=== PATIENT | female | born 1980 | race Caucasian/White ===

== ENCOUNTER 2021-02-21 16:30 | Emergency (ER) | payer SELFPAY ==
[~2021-02-21] VITALS: Ht 170.2 cm; Wt 66.7 kg
--- NOTE | 2021-02-21 17:00 | NUR ---
PT AMBULATED STEADILY TO ROOM FROM [facility]
--- NOTE | 2021-02-21 17:28 | NUR ---
FIRST CONTACT WITH PT. PT SITTING UP IN HAIDER BAZZI. PT REPORTS THAT SHE HAS RECENTLY MOVED TO [place] FROM [place] AND DOES NOT HAVE A PCP OR [place] MEDICAID YET TO FILL HER RX. [place] BASED PCP CALLED IN ANXIETY MEDICATION TO PT'S PHARMACY BUT PT STATES "IT IS TOO EXPENSIVE TO GET". PT W MULTIPLE CO TODAY INCLUDING NEEDING ANXIETY RX AND PELVIC PAIN FOR NON-SPECIFIC TIME FRAME. BP/SPO2 MONITORING IN PLACE. UA COLLECTED AND SENT TO LAB
[2021-02-21 17:29] LABS: MICROSCOPIC NOT IND
[2021-02-21] MEDS ORDERED: LORazepam 2 MG/ML, 1ML ONE (18:22)
[2021-02-21] MEDS ORDERED: ONDANSETRON 2MG/ML, 2ML ONE (18:22)
[2021-02-21] MEDS ORDERED: MORPHINE SULFATE 4 MG/ML, 1ML ONE (18:22)
[2021-02-21] MEDS ORDERED: KETOROLAC 30 MG/1 ML ONE (18:25)
[2021-02-21] MEDS ORDERED: OXYcodone/APAP 10/325MG TABLET ONE (18:29)
[2021-02-21] MEDS ORDERED: LORazepam 1MG TABLET ONE (18:29)
[2021-02-21] MEDS ORDERED: LORazepam 1MG TABLET PO ONE (18:30)
[2021-02-21] MEDS ORDERED: KETOROLAC 30 MG/1 ML IVPush ONE (18:30)
[2021-02-21] MEDS ORDERED: ONDANSETRON 2MG/ML, 2ML IVPush ONE (18:30)
[2021-02-21] MEDS ORDERED: MORPHINE SULFATE 4 MG/ML, 1ML IVPush PRN (18:30)
--- NOTE | 2021-02-21 18:33 | NUR ---
PER ERP, NO IV AT THIS TIME. MEDICATIONS CHANGED TO PO/IM.
--- NOTE | 2021-02-21 18:45 | NUR ---
PT MEDICATED PER EMAR. TO CT AT THIS TIME.
[2021-02-21 18:52] LABS: BASOPHILS % (AUTO) 0 % (0-1); EOSINOPHILS % (AUTO) 1 % (1-7); LYMPHOCYTES % (AUTO) 27 % (22-44); MEAN CORPUSCULAR HEMOGLOBIN 32.4 pg (27.0-34.8); MEAN CORPUSCULAR HGB CONC 34.4 g/dL (32.4-35.8); MEAN PLATELET VOLUME 7.3 fL (7.4-10.4); MONOCYTES % (AUTO) 5 % (2-9); NEUTROPHILS % (AUTO) 67 % (42-75); PLATELET COUNT 344 x10^3/uL (130-400); RED BLOOD COUNT 3.97 x10^6/uL (3.82-5.3); RED CELL DISTRIBUTION WIDTH 13.4 % (9.6-15.2)
[2021-02-21 18:58] LABS: ALANINE AMINOTRANSFERASE 24 U/L (12-78); ALBUMIN 3.7 g/dL (3.4-5.0); ANION GAP 7 mmol/L (5-15); CALCIUM 8.9 mg/dL (8.5-10.1); CHLORIDE 109 mmol/L (98-107); CREATININE 0.86 mg/dL (0.55-1.02)
[2021-02-21] MEDS ORDERED: OXYcodone/APAP 10/325MG TABLET PO ONE (19:00)
[2021-02-21 19:01] LABS: ALKALINE PHOSPHATASE 57 U/L (45-117); BILIRUBIN,TOTAL 0.5 mg/dL (0.2-1.0); TOTAL PROTEIN 7.1 g/dL (6.4-8.2)
--- NOTE | 2021-02-21 19:01 | NUR ---
PT REPORTS SIGNIFICANT IMPROVEMENT IN PAIN WITH MEDICATIONS. ALSO STATES "WHY DO MY FEET LOOK LIKE THAT?" POINTING TO TOES. NO ABNORMALITY NOTED. PT AMBULATED STEADILY TO RESTROOM [facility].
[2021-02-21 19:07] VITALS: BP 117/79
--- NOTE | 2021-02-21 19:31 | NUR ---
CALL LIGHT ANSWERED, PT ON PHONE. PT REQUESTING ADDITIONAL PAIN MEDICATIONS FOR RLQ PAIN. ERP AWARE.
--- NOTE | 2021-02-21 19:44 | NUR ---
US AT BEDSIDE
[2021-02-21] MEDS ORDERED: LORazepam 1MG TABLET PO PRN (20:00)
--- NOTE | 2021-02-21 20:22 | NUR ---
CALL LIGHT ANSWERED. PT STATES "I HAVE A DOG THAT I HAVE NEVER BEEN AWAY FROM, SO I NEED TO LEAVE. CAN YOU CALL ME WITH RESULTS". DISCUSSED OPTION FOR AMA WITH PATIENT. PATIENT LATER HEARD YELLING FROM ROOM "IF PEOPLE IN HERE HAVE COVID THEN I'M LEAVING".
--- NOTE | 2021-02-21 20:43 | NUR ---
DC EDUCATION PROVIDED, PT DEMONSTRATES UNDERSTANDING. PT AMBULATED STEADILY TO DC WITH RN
== END 2021-02-21 20:44 | disposition home or self-care (01) ==
LOC: ED 20:11
DX: R10.32 Left lower quadrant pain (principal); R93.89 Abnormal findings on diagnostic imaging of other specified body structures; Z87.448 Personal history of other diseases of urinary system
CPT/HCPCS: 36415; 74176; 76830; 80053; 81003; 83690; 85025; 96374; 99285; J1885